=== PATIENT | female | born 1945 | race Caucasian/White ===

== ENCOUNTER 2020-01-06 14:51 | Outpatient (CLI) | payer OTHER, SELFPAY ==
--- NOTE | ~2020-01-06 | MM_ITS ---
EXAMINATION: MM screening dana BI w eliot HISTORY: Screening TECHNIQUE: Craniocaudal and mediolateral oblique 3-D tomosynthesis images were obtained and synthetic 2-D images were generated. CAD analysis was submitted and interpreted. COMPARISON: Comparison to multiple prior studies sequentially, with oldest reviewed study dated 04/09. BREAST PARENCHYMAL COMPOSITION: There are scattered areas of fibroglandular density. FINDINGS: There is no evidence of suspicious mass, calcification, or architectural distortion to sugg est malignancy in either breast. There has been no suspicious interval change. IMPRESSION: 1. No mammographic evidence of malignancy. 2. Recommend routine screening mammography in one year. BI-RADS Category 1: Negative Reviewed, dictated and finalized at location A.
== END 2020-01-06 14:52 | disposition home or self-care (01) ==
LOC: ANHIMG 14:55
PROVIDERS: PCP Internal Medicine; Visit Provider Internal Medicine
DX: Z12.31 Encounter for screening mammogram for malignant neoplasm of breast (principal)
CPT/HCPCS: 77063; 77067

== ENCOUNTER 2020-04-20 07:59 | Outpatient (CLI) | payer OTHER, SELFPAY ==
--- NOTE | 2020-04-20 08:48 | ECG_ITS ---
Measurements Intervals [place] Rate: 51 P: 30 AK: 177 QRS: -14 QRSD: 84 T: 33 QT: 439 QTc: 408 Interpretive Statements SINUS BRADYCARDIA INCOMPLETE RIGHT BUNDLE BRANCH BLOCK DELAYED PRECORDIAL R/S TRANSITION LOW QRS VOLTAGE IN PRECORDIAL LEADS BASELINE ARTIFACT- I, II, AVR, AVL BORDERLINE ECG Electronically Signed On 04-20-2020 9:09:26 TRIAL CONSULTANT by Kemal Smiley D.O.
[2020-04-20 09:11] LABS: Basophils Absolute Auto 0.1 K/mm3 (0.0-0.1); Basophils Percent Auto 0.9 % (0.2-1.2); Eosinophils Absolute Auto 0.2 K/mm3 (0-0.3); Eosinophils Percent Auto 2.4 % (0-4.4); Hematocrit 43.5 % (37.0-47.0); Hemoglobin 14.3 g/dL (12.0-15.0); Immature Granulocyte Absolute 0.01 K/mm3 (0.00-0.031); Immature Granulocyte Percent A 0.1 % (0-0.5); Lymphocytes Absolute Auto 1.72 K/mm3 (0.9-3.2); Lymphocytes Percent Auto 25.3 % (18.3-44.2); Mean Corpuscular HGB Conc 32.9 g/dl (32-36); Mean Corpuscular Hemoglobin 30.8 pg (26-34); Mean Corpuscular Volume 93.5 fl (80-100); Mean Platelet Volume 10.7 fl (7.4-10.4); Monocytes Absolute Auto 0.5 K/mm3 (0.1-0.6); Monocytes Percent Auto 7.1 % (2.6-8.5); Neutrophils Absolute Auto 4.4 K/mm3 (1.3-6.7); Neutrophils Percent Auto 64.2 % (45.5-73.1); Platelet Count Result 217 k/mm3 (150-375); Red Blood Count 4.65 M/mm3 (4.2-5.4); Red Cell Distribution Width 12.2 % (11.5-14.5); White Blood Count 6.8 K/mm3 (4.5-10.0)
[2020-04-20 09:20] LABS: Urine Cotinine NEGATIVE
[2020-04-20 09:23] LABS: Albumin Level 4.4 g/dL (3.5-5.1); Estimated Glomerular Filt Rate > 60; Glucose 90 mg/dL (65-105); Hemoglobin A1C 5.1 % (<5.7)
== END 2020-04-20 08:00 | disposition home or self-care (01) ==
LOC: ANHSURGERY 08:01
PROVIDERS: PCP Internal Medicine; Visit Provider Orthopaedic Surgery
DX: M17.12 Unilateral primary osteoarthritis, left knee (principal); I45.10 Unspecified right bundle-branch block; R00.1 Bradycardia, unspecified; Z51.81 Encounter for therapeutic drug level monitoring; Z79.899 Other long term (current) drug therapy
CPT/HCPCS: 80307; 82040; 82565; 82947; 83036; 85025; 86850; 86900; 86901; 87081; 93005

== ENCOUNTER → 2020-04-29 03:18 | Outpatient (CLI) | payer OTHER, SELFPAY ==
[2020-04-29 18:10] LABS: SARS-CoV-2 RNA PCR Negative
== END ==
PROVIDERS: PCP Internal Medicine; Visit Provider Orthopaedic Surgery
DX: Z01.812 Encounter for preprocedural laboratory examination (principal); Z20.822 Contact with and (suspected) exposure to COVID-19
CPT/HCPCS: C9803; U0003; U0005

== ENCOUNTER 2020-05-02 02:00 | Day surgery (SDC) | payer OTHER, SELFPAY ==
[2020-04-20 08:07] VITALS: BMI 25.1
[2020-04-20 08:55] VITALS: BP 158/76; PULSE 64; RESP 16; TEMP 37.1; O2SAT 100
--- NOTE | 2020-04-29 13:11 | WPDANESEPPF ---
Anes - Initial Pre Proc Eval Procedure: Operation Date: 05/02/20 07:30 Proposed Procedures p Left Total Knee Arthroplasty - John Arrington MD Date/Time: 04/29/20 13:11 Surgeon: John Arrington MD Pre Op Diagnosis: left knee OA Patient Data Age: 74 Gender: F Height: 5 ft 7.5 in Weight: 73.8 kg Last Vital Signs Temp 98.8 F 04/20/20 08:55 Pulse 64 04/20/20 08:55 Resp 16 04/20/20 08:55 BP 158/76 H 04/20/20 08:55 Pulse Ox 100 04/20/20 08:55 Allergies Allergy/AdvReac Type Severity Reaction Status Date / Time mirabegron [From Myrbetriq] Allergy Unknown Rash, Verified 04/20/20 08:08 BLURRY VISION,CONSTIPATION Inhaled Anesthetics (Halogen AdvReac Unknown Nausea and Verified 04/20/20 08:49 Based) Vomiting Home Medications Medication Instructions Recorded Confirmed Type Ca 600 mg-D3 800 unit-mag oxide 50 1 tablet PO DAILY 04/14/19 04/27/20 History nj-Yq-dewohb-manganese-boron tablet atorvastatin 10 mg tablet 10 mg PO HS 04/14/19 04/27/20 History biotin 10,000 mcg-keratin 100 mg 1 tablet PO DAILY 04/14/19 04/27/20 History tablet ibuprofen 100 mg tablet 200 mg PO PRN PRN 04/14/19 04/27/20 History ibuprofen 200 mg-diphenhydramine 1 cap PO PRN PRN 04/14/19 04/27/20 History HCl 25 mg capsule loratadine-pseudoephedrine ER 10 1 tablet PO DAILY 04/14/19 04/27/20 History mg-240 mg tablet,extended [id number] magnesium oxide 400 mg (241.3 mg 400 mg PO DAILY 04/14/19 04/27/20 History magnesium) tablet multivitamin 1 tablet PO DAILY 04/14/19 04/27/20 History pyridoxine (vitamin B6) 100 mg 100 mg PO DAILY 04/14/19 04/27/20 History tablet sennosides 8.6 mg-docusate sodium 1 tab-cap PO DAILY 04/14/19 04/27/20 History 50 mg tablet wheat dextrin 3 gram/3.5 gram oral 1.5 gm PO DAILY 04/14/19 04/27/20 History powder cyanocobalamin (vitamin B-12) 1,000 mcg PO DAILY 04/20/20 04/27/20 History oxybutynin chloride 10 mg PO DAILY 04/20/20 04/27/20 History rivaroxaban 10 mg tablet 10 mg PO DAILY #14 tablet 04/27/20 04/27/20 Rx Patient hx anesthesia problems: none Family hx anesthesia problems: none PMFSH Past Medical History Medical History Arthritis Constipation Flat foot [pes planus] (acquired), left foot High cholesterol History of blood clots History of pulmonary embolism Osteoporosis Posterior tibial tendon dysfunction (PTTD) of left lower extremity Urinary frequency Vision abnormalities Surgical History Surgical History History of foot surgery left foot bunion and bunionette as well as hammertoe done in [place] History of hip surgery Right hip 01-13-19 [place] History of shoulder surgery 2017-[facility] Hx of knee surgery Right Knee 2013-[facility] Family History Family History Mother Patient's mother is Other Arthritis Heart disease Malignant neoplasm Social History Social History Years smoked: 20 Smoking status: Former smoker Tobacco type: cigarettes Smoking end date: 03/25/89 Additional smoking assessment comments: DENIES ANY FORM OF TOBACCO USE Alcohol intake: current Alcohol use details: 2 DRINKS PER MONTH Living arrangements: alone Spiritual care concerns: No Anes - Eval Final PreProcedure Day of Procedure 04/29/20 13:11 Patient weight: overweight Heart: regular rate and rhythm Lungs: clear to auscultation Airway: Mallampati scale class II Neurological: alert and oriented Last oral intake: >/= 8 hours ASA classification: III Emergent: no Anesthetic plan: proceed Anesthesia type and monitoring: general LMA and standard monitoring Informed Consent: The patient's anesthetic plan and its attendant risks and benefits were discussed with the patient/family/POA. Questions were
[2020-05-02] VITALS (15 sets, daily range): BP systolic 101–156; BP diastolic 64–97; PULSE 64–86; RESP 12–21; TEMP 36–37.1; O2SAT 92–100
--- NOTE | ~2020-05-02 | XR_ITS ---
EXAMINATION: XR knee LT 2V DATE: 05/02/2020 10:16 INDICATION: Left knee arthroplasty. Postop. TECHNIQUE: 2 views of left knee were obtained. COMPARISON: Left knee radiographs 09/24/2019 FINDINGS: There is a total left knee arthroplasty with patellar resurfacing in near-anatomic alignmen t. No fracture. There is gas in the knee joint and soft tissues, consistent with recent surgery. IMPRESSION: 1. Total left knee arthroplasty in near-anatomic alignment. Reviewed, dictated and finalized at location A. [employer]
[2020-05-02] MEDS: LACTATED RINGERS 1,000 ML 30 ML IV CONT ×2 (06:44→10:03)
[2020-05-02] MEDS: ACETAMINOPHEN 500 MG TABLET 1000 MG PO ×3 (06:44→19:28)
[2020-05-02] MEDS: TRANEXAMIC ACID 1,000MG/ISO100 1,000 MG/100 ML BAG 200 MG IVPB (06:56)
--- NOTE | 2020-05-02 06:59 | WPDANESPNB ---
Anes - Peripheral Nerve Block Date/Time: 05/02/20 06:59 I have discussed with the patient/family/POA the placement of a peripheral nerve block for post-operative pain management, including associated risks, benefits, complications, and side effects. Alternative methods of post-operative analgesia were detailed. Questions were solicited and answers provided to the satisfaction of the patient/family/POA. Time-Out: A pre-procedural Time-Out was completed immediately before starting the procedure and confirmed: Patient Identification, Site, Procedure, Patient Position and the Availability of Requisite Equipment. Clinical Indications: Acute post-operative pain management requested by the operative surgeon. Nerve Block Insertion Note Anes-nerve block: adductor canal left Patient position: supine Skin prep: chlorhexidine Needle: 22 gauge, stimulating, insulated echogenic needle. Needle length: 80 mm Technique: ultrasound Technique comment: in plane Injectate: bupivacaine 0.5% with epi 5 mcg/ml (30cc) Observations: tolerated well Complications: none Procedure start time:: 720 Procedure end time:: 725
--- NOTE | 2020-05-02 07:13 | WPDHPUPDATE1 ---
History and Physical Update Update Date/Time: 05/02/20 07:13 History and Physical has been reviewed, including an updated exam of the patient. There are NO changes in the patient's condition. Risks, benefits, and alternatives have been discussed and questions answered. Patient agrees to proceed with procedure.
[2020-05-02] MEDS: ceFAZolin 2 GM/D5W 50 ML 2 GM/50 ML BAG IVPB (07:30)
[2020-05-02] MEDS: BUPIVACAINE/EPINEPHRINE 0.25% 50 ML VIAL 60 ML INFILTRATE (08:10)
[2020-05-02] MEDS: TRANEXAMIC ACID 1,000 MG/10 ML AMPUL 1000 MG TOPICAL (08:10)
--- NOTE | 2020-05-02 10:07 | PM.PROC ---
Procedure Note - Detailed Date of procedure: 05/02/20 Pre-op diagnosis: left knee OA Post-op diagnosis: same Procedure performed: left total knee replacement Description of procedure: The patient was identified and proper site identified. In the preop holding area the anesthesia team performed a left sub sartorial block after which the patient was taken to the operating room and transferred to the OR table positioning supine taking care to pad the torso and extremities. After induction of anesthesia and intubation a nonsterile tourniquet was placed high on the left thigh. The left lower extremity was prepped and draped in the usual sterile fashion. The extremity was exsanguinated and with the knee flexed tourniquet was inflated to 300 mmHg remaining up for approximately 65 minutes. An anterior midline incision was made and a mid vastus approach was used. Infra and suprapatellar fat pads were excised. Patella was resected leaving 15 mm thickness and prepared for the size 31 round three peg component. Using the intramedullary guide the distal femur was cut in the proper orientation for the size 65 femoral component. Using the extramedullary guide the tibia was cut perpendicular to the long axis protecting collateral ligaments and popliteal structures. It was sized to a 67. Flexion and extension gaps were balanced. Trial reduction was undertaken and the weight-bearing line was noted to passed through the center of the joint. Proximal tibia was drilled and punched in the proper orientation for the real component. Trial components were removed. The bone surfaces were washed with pulsatile lavage and dried. The real components were cemented simultaneously. The knee was held in extension and the patella held clamped until the cement had cured. Excess cement was removed from the joint. After trialing it was determined that the 12 mm insert gave full range of motion from 0-120 degrees of flexion and the patella tracked in the femoral groove with no lift-off. After final lavage the joint the real 12 insert was placed and secured with a locking bar. A Betadine and saline wash was placed into the wound and allowed to sit for approximately 3 minutes and then evacuated. Periarticular tissues were infiltrated with 60 cc of the arthroplasty solution. 1 g of tranexamic acid was left in the wound. The extensor mechanism was repaired with #2 Vicryl suture and 0 looped PDS suture. Subcu was reapproximated with three 0 Monocryl, 2-0 strata fix and tissue adhesive for the skin. A sterile dressing was applied. She tolerated the procedure well, was awakened and extubated, transferred to the bed and was taken to recovery area in stable condition. There were no known intraoperative complications. Perioperative antibiotics were administered. Anesthesia: GLMA Surgeon: John Arrington MD Gang Bore Operator: Kiera Pringle Estimated blood loss (mL): 100 Drains: No Packing: No Pathology: none sent Complications: No immediate complications Condition: stable Disposition: PACU
[2020-05-02] MEDS: fentaNYL CITRATE INJ (*CRX) 100 MCG/2 ML VIAL 25 MCG IV PUSH ×8 (10:13→10:39)
[2020-05-02] MEDS: HYDROmorphone HCL INJ (*CRX) 1 MG/ML SYR 0.5 MG IV PUSH ×2 (10:41→10:50)
--- NOTE | 2020-05-02 12:15 | ADMGEN ---
This patient, Kassandra Wilson, was admitted to 2 Medical Room 242-. Patient/family oriented to hospital policies and general routines including ID bracelet, bed and alarms, visiting hours, pain management, procedures, bathroom and other care routines, personal items, smoking policy, room service/diet, and visiting hours. Information on how to activate the Rapid Response Team has been discussed. Patient/Family are encouraged to report perceived risks to care and to ask questions if they do not understand what they are told or what they should do.
[2020-05-02] MEDS: oxyCODONE HCL (*CRX) 5 MG TAB IR PO ×2 (14:23→19:29)
[2020-05-02] MEDS: ONDANSETRON INJ 4 MG/2 ML VIAL IV PUSH (17:21)
[2020-05-02] MEDS: DOCUSATE SODIUM 100 MG CAPSULE PO (17:21)
[2020-05-02] MEDS: ATORVASTATIN 10 MG TABLET PO (20:04)
[2020-05-02] MEDS: FAMOTIDINE 20 MG TABLET PO (20:04)
[2020-05-03 02:00] VITALS: BP 129/67; PULSE 58; RESP 21; TEMP 36.3; O2SAT 100
[2020-05-03] MEDS: ACETAMINOPHEN 500 MG TABLET 1000 MG PO ×2 (02:20→09:08)
[2020-05-03] MEDS: oxyCODONE HCL (*CRX) 5 MG TAB IR PO ×2 (02:20→09:09)
[2020-05-03 06:00] VITALS: BP 135/83; PULSE 64; RESP 20; TEMP 36.2; O2SAT 99
--- NOTE | 2020-05-03 06:21 | PC.NURSE ---
Pt states she has been up to the chair shortly after surgery. Pt alert and oriented.
--- NOTE | 2020-05-03 07:22 | PM.DS ---
DS: Admitting Diagnosis Admitting Diagnosis Admitting Diagnosis: Osteoarthritis left knee DS: Discharge Diagnosis Discharge Diagnosis (1) Osteoarthritis of left knee: Qualifiers: Osteoarthritis type: primary Qualified Code(s): M17.12 - Unilateral primary osteoarthritis, left knee Code(s): M17.12 - Unilateral primary osteoarthritis, left knee Status: Acute Assessment and Plan: Patient is going to be discharged home today. Her outpatient therapy begins in one week. She was provided with home going instructions. She already has a follow-up with me in two weeks. DS: Summary Hospital Course Reason for hospitalization: Outpatient observation following total knee replacement Hospital Course: Following the patient's surgery, she was admitted to the floor for outpatient observation. She made excellent progress overnight is going to be discharged home. Her therapy was initiated in the hospital. Status at Discharge Functional status at discharge: uses cane/walker Time Spent with Patient Time attestation: Total time spent providing and/or coordinating discharge services: Exam Const: General: cooperative, comfortable and no acute distress Nutritional Appearance: well nourished Orientation/consciousness: patient oriented x3 HENMT: Head: normal to inspection Ears: hearing grossly normal bilaterally Face and sinus: face symmetric Mouth: Yes moist mucous membranes Teeth and gingiva: fair dentition Eyes: Alignment and Position: alignment normal and position normal Sclera: sclerae normal Neck: Neck: normal visual inspection and nontender Chest: Chest palpation & inspection: normal inspection of the chest Resp: Effort & Inspection: normal respiratory effort and able to speak in complete sentences GI: Inspection: other (Nondistended, nontender) Skin: General skin exam: normal color Rashes: no rashes Neuro: General: patient oriented x3 Cognition (Neuro): normal cognition Speech: normal speech Extrem: General: normal to inspection and other Other: Exam of the left knee shows a dry dressing and minimal swelling. Grossly, neurovascular status unremarkable to the left lower extremity. Calves negative. Full active extension noted. Able to flex at least 90? on own already. Psych: Appearance: grossly normal Mental Status: mental status grossly normal Discharge Plan Discharge Patient Disposition: Home, Self-Care Discharge Instructions: 3 times daily for 20 minutes each time, reclining in bed with ice packs over the incision and a pillow underneath the calf of the affected leg, not under the knee. Your wound is glued so it is okay to get into the shower and get the wound wet in two days. Be sure to read through all the information that came from a my office and the hospital. Most of the answers you will need can be found that material. Call the office with any questions that you cannot find answers to, or concerns you may have. After the Xarelto is completed, start taking one coated 325 mg aspirin daily and do this for four more weeks. Please call [facility] at as soon as possible to confirm follow-up appointment to be seen in 2 weeks. Also, call the office with any orthopedic/surgical related questions prior to follow-up. Be sure to get up and move around several times daily but do not overdo it. Take the arthritis formula Tylenol 650 mg tablet on an 8 hour schedule. A good 8 hour schedule is: 6:00 a.m., 2:00 p.m., 10:00 p.m. you may take the prescribed pain medication along with the Tylenol; it is not to be taken instead of the Tylenol. I would like for you to take the Tylenol on a schedule for 2-3 weeks. Once the Xarelto is completed, if you wish to supplement your pain regimen with [id number] anti-inflammatory such as Advil or Aleve, that is fine. Follow the label instructions. Do not take this medicine if you have an allergy to NSAIDs. Patient Instructions: An
[2020-05-03] MEDS: FAMOTIDINE 20 MG TABLET PO (09:09)
[2020-05-03] MEDS: RIVAROXABAN 10 MG TABLET PO (09:09)
[2020-05-03] MEDS: MULTIVITAMINS THERAPEUTIC TAB (*BKC) 1 TABLET PO (09:09)
[2020-05-03] MEDS: CYANOCOBALAMIN 1,000 MCG TABLET 1000 MCG PO (09:09)
[2020-05-03] MEDS: DOCUSATE SODIUM 100 MG CAPSULE PO (09:10)
[2020-05-03] MEDS: PYRIDOXINE HCL 50 MG TABLET 100 MG PO (09:10)
--- NOTE | 2020-05-03 09:34 | WPDANESPN ---
Anes - Prog Note Post-Op Date/Time: 05/03/20 09:34 Cardiovascular status: normal Respiratory status: normal Airway patency: baseline Mental status: baseline Post-Op hydration status: normal Vital Signs: Last Vital Signs Temp 36.2 C L 05/03/20 06:00 Pulse 64 05/03/20 06:00 Resp 20 05/03/20 06:00 BP 135/83 05/03/20 06:00 Pulse Ox 99 05/03/20 06:00 Pain Score (VAS): 0 I/O: Intake & Output 05/02/20 05/03/20 05/03/20 23:59 07:59 15:59 Intake Total 300 750 480 Output Total 875 1000 Balance -575 -250 480 Post-procedural complaints: none Patient Feedback: Patient satisfied with anesthetic care.
[2020-05-03 10:00] VITALS: BP 114/54; PULSE 71; RESP 16; TEMP 36.6; O2SAT 100
--- NOTE | 2020-05-03 11:35 | PC.NURSE ---
pt discharged home, sent with dressing supplies and cryo cuff ice machine, reviewed all discharge instructions with pt and medications were transmitted to pharmacy, pt doing well and eager to get home
== END 2020-05-03 11:34 | disposition home or self-care (01) ==
LOC: ANHSURGERY 10:07 → ANH2MED 11:37
PROVIDERS: PCP Internal Medicine; Visit Provider Orthopaedic Surgery
PROC: (CPT 27447; principal; 2020-05-02 07:30)
DX: M17.12 Unilateral primary osteoarthritis, left knee (principal); G89.18 Other acute postprocedural pain; E78.00 Pure hypercholesterolemia, unspecified; M81.0 Age-related osteoporosis without current pathological fracture; Z86.711 Personal history of pulmonary embolism; Z79.01 Long term (current) use of anticoagulants; Z87.891 Personal history of nicotine dependence
CPT/HCPCS: 27447; 64447; 73560; 97110; 97116; 97161; 97165; 97530; A9270; C1713; C1776; C9803; J0690; J1100; J1170; J2405; J2704; J3010; J7120; U0003; U0005

== ENCOUNTER 2020-06-03 09:55 | Emergency (ER) | payer OTHER, SELFPAY ==
[2020-06-03 10:20] VITALS: BP 159/67; PULSE 79; RESP 18; TEMP 36.1; O2SAT 100
--- NOTE | 2020-06-03 11:14 | PC.NURSE ---
Report to Perri RN, to continue care. JOVI Marks, at bedside for digital block.
--- NOTE | 2020-06-03 11:27 | ED.GENADULT ---
HPI - General Adult General Chief complaint: Extremity Problem,Nontraumatic <Ranjith Anguiano PA-C - Last Filed: 06/03/20 11:31> Stated complaint: fingernail infection <SOWMYA Hilton Last Filed: 06/03/20 11:31> Time Seen by Provider: 06/03/20 10:05 <Ranjith Anguiano PA-C - Last Filed: 06/03/20 11:31> Source: patient <Ranjith Anguiano PA-C - Last Filed: 06/03/20 11:31> Mode of arrival: ambulatory <SOWMYA Hilton Last Filed: 06/03/20 11:31> Limitations: no limitations <SOWMYA Hilton Last Filed: 06/03/20 11:31> History of Present Illness HPI narrative: Patient is a 74-year-old female who presents with infection to the nailbed of the right middle finger has been managed by her orthopedist Dr. Arrington is currently on Bactrim in the last day it is developed some purulence at the proximal nail fold patient notes moderate aching pain worse with touch and activity. Patient denies any fever chills nausea vomiting. Patient presents in no distress <Ranjith Anguiano PA-C - Last Filed: 06/03/20 11:31> Related Data Home medications: Home Medications Medication Instructions Recorded Confirmed Ca 600 mg-D3 20 mcg-mag oxide 50 1 tablet PO DAILY 04/14/19 05/31/20 pr-Zk-ybysdc-manganese-boron tablet atorvastatin 10 mg tablet 10 mg PO HS 04/14/19 05/31/20 biotin 10,000 mcg-keratin 100 mg 1 tablet PO DAILY 04/14/19 05/31/20 tablet ibuprofen 100 mg tablet 200 mg PO PRN PRN 04/14/19 05/31/20 ibuprofen 200 mg-diphenhydramine 1 cap PO PRN PRN 04/14/19 05/31/20 HCl 25 mg capsule loratadine-pseudoephedrine ER 10 1 tablet PO DAILY 04/14/19 05/31/20 mg-240 mg tablet,extended [id number] magnesium oxide 400 mg (241.3 mg 400 mg PO DAILY 04/14/19 05/31/20 magnesium) tablet multivitamin 1 tablet PO DAILY 04/14/19 05/31/20 pyridoxine (vitamin B6) 100 mg 100 mg PO DAILY 04/14/19 05/31/20 tablet sennosides 8.6 mg-docusate sodium 1 tab-cap PO DAILY 04/14/19 05/31/20 50 mg tablet wheat dextrin 3 gram/3.5 gram oral 1.5 gm PO DAILY 04/14/19 05/31/20 powder cyanocobalamin (vitamin B-12) 1,000 mcg PO DAILY 04/20/20 05/31/20 oxybutynin chloride 10 mg PO DAILY 04/20/20 05/31/20 <Ranjith Anguiano PA-C - Last Filed: 06/03/20 11:31> Allergies/adverse reactions: Allergies Allergy/AdvReac Type Severity Reaction Status Date / Time mirabegron [From Myrbetriq] Allergy Unknown Rash, Verified 05/02/20 07:16 BLURRY VISION,CONSTIPATION Inhaled Anesthetics (Halogen AdvReac Unknown Nausea and Verified 05/02/20 07:16 Based) Vomiting <Ranjith Anguiano PA-C - Last Filed: 06/03/20 11:31> Review of Systems Review of Systems: All systems reviewed & are unremarkable except as noted in HPI and below <Ranjith Anguiano PA-C - Last Filed: 06/03/20 11:31> [facility] Past Medical History Medical History: Medical History Arthritis Constipation Flat foot [pes planus] (acquired), left foot High cholesterol History of blood clots History of pulmonary embolism Osteoporosis Paronychia Right long finger May 2020 Posterior tibial tendon dysfunction (PTTD) of left lower extremity Urinary frequency Vision abnormalities <Ranjith Anguiano PA-C - Last Filed: 06/03/20 11:31> Surgical History Surgical History: Surgical History History of foot surgery left foot bunion and bunionette as well as hammertoe done in [place] History of hip surgery Right hip 01-13-19 [place] History of shoulder surgery 2017-[facility] Hx of knee surgery Right Knee 2013-[facility] Left TKA April 2019 Osteoarthritis of left knee Left TKA March 2020 <Ranjith Anguiano PA-C - Last Filed: 06/03/20 11:31> Family History Family History: Family History Mother Patient's mother is decea
== END 2020-06-03 12:17 | disposition home or self-care (01) ==
PROVIDERS: Emergency Provider General Practice; PCP Internal Medicine
DX: L03.011 Cellulitis of right finger (principal); E78.00 Pure hypercholesterolemia, unspecified; M19.90 Unspecified osteoarthritis, unspecified site; M81.0 Age-related osteoporosis without current pathological fracture; Z86.711 Personal history of pulmonary embolism; Z87.891 Personal history of nicotine dependence
CPT/HCPCS: 26010; 87070; 87075; 87147; 87186; 87205; 99283

== ENCOUNTER 2020-06-20 10:00 | Outpatient (RCR) | payer OTHER, SELFPAY ==
--- NOTE | 2020-05-16 11:07 | PTOPEVAL ---
Thank you for referring Kassandra Wilson to [facility].? The patient is scheduled to be seen for therapy? 2 x/week for 5 weeks. Please review, sign, date and return this plan of care PRERNA. I agree with and certify that the following plan of care is medically necessary. Referring Physician Date Attending Provider: John Arrington MD Physical Therapy Evaluation Evaluation Information Problem Diagnosis left TKA Onset 05/02/20 Cause OA Subjective Information Pt had her TKR 05/02/20. She had Query Text:As Reported By Patient/ to cancel her visit last week Family due to the weather. She is currently using a ww to improve mobility. No AD prior to surgery. [facility] She is limited with her ability to perform transfers in/out car, mobility at home and community, getting out of chair, performing ADL's/IADL's. She needs to be back to normal to allow her to perform normal hiking, walking and traveling. Prior Level of Function Activity Level (Last 3 Months) Activity of Daily Living Ability Independent Indoor/Home Mobility Independent Community Mobility Independent Stairs Ability Independent Functional Cognition (Planning, Shopping Independent , Taking Medications) Cooking Yes Cleaning Yes Laundry Yes Shopping Yes Driving Yes Home Setting Home Type House Environmental Barriers Stairs, 2-4 Living Situation Alone Mobility Assistive Devices (Used Last 3 None Months) Pain Assessment Left Knee(s) Reported Pain Level 2 Pain Description Aching,Sharp,Tender on Palpation Pain Frequency Continuous Lowest Pain Intensity 2 Greatest Pain Intensity 10 Pain Aggravating Factors ADL's,Bending,Exercise/ Activity,Sitting,Stair Climbing,Walking,Weight Bearing/Standing Lower Extremity Range of Motion Left Knee Flexion Range of Motion - Active 85 Knee Extension Range of Motion - Passive -7 Knee Range of Motion Limitations Edema,Pain Knee Range of Motion Comments right: 0-123 dg Lower E
--- NOTE | 2020-06-20 16:07 | PTOPEVAL ---
Thank you for referring Kassandra Wilson to [facility].? Kassandra has been seen for 11 therapy visits to address impairments related to her knee surgery. She demonstrates improved knee range, leg strength, performance with daily task and functional mobility. She has achieved 90% of her therapy goals at this time. She is indep with her home program. Will D/C skilled therapy services at this time. Please review, sign, date and return this discharge summary PRERNA. I agree with and certify that the following plan of care is medically necessary. Referring Physician Date Attending Provider: John Arrington MD Physical Therapy Discharge Note Diagnosis left TKA Onset 05/02/20 Cause OA Additional Evaluation Detail Pt had her TKR 05/02/20. Subjective Information She is not using a cane or Query Text:As Reported By Patient/ walker. She is performing Family community mobility, driving and shopping task. She reports shooting pain in lateral knee at night, but no consistent. She denies problems with steps. She continues to have slight trouble getting in/out of car. Pain Assessment Pain Scale Used Numeric (1 - 10) Self Report Pain Assessment Left Knee(s) Reported Pain Level 0 Pain Description Shooting Pain Frequency Intermittent Lowest Pain Intensity 0 Greatest Pain Intensity 5 Lower Extremity Range of Motion Left Knee Flexion Range of Motion - Active 110 Knee Flexion Range of Motion - Passive 120 Knee Extension Range of Motion - Active 0 Query Text: Knee Range of Motion Limitations Edema,Pain Knee Range of Motion Comments right knee flex: 0- 115 dg Lower Extremity Muscle Strength Testing Hip Strength Right Hip Flexion Strength 5 Normal Hip Extension Strength 3+ Fair + Hip Abduction Strength 3+ Fair + Left Hip Flexion Strength 4- Good - Hip Extension Strength 3+ Fair + Hip Abduction Strength 3+ Fair + Knee Strength Right Knee Flexion Strength 4+ Good + Knee Extension Strength 5 Normal Left Knee Flexion Strength 4+ Good + Knee Extension Strength 4+ Good + Extremity Circumference Assessment Location Left Body Part Knee Site Descriptor ([place]) mid-patellar region Circumference (cm) 40 Noninvolved Side Circumference (cm) 38 Circumference Comments tibial tuberosity: left 36 cm, right: 34 Balance Assessment Time Up Go (TUG) Timed Up and Go Test (TUG) (Seconds) 10 Assistive Devices None 5 Time Sit
== END 2020-06-21 10:33 | disposition home or self-care (01) ==
LOC: ANHPT 10:00
PROVIDERS: PCP Internal Medicine; Visit Provider Orthopaedic Surgery
DX: Z47.1 Aftercare following joint replacement surgery (principal); Z96.652 Presence of left artificial knee joint
CPT/HCPCS: 97014; 97110; 97116; 97140; 97162; 97530; G0283

== ENCOUNTER 2021-05-04 16:07 | Outpatient (CLI) | payer OTHER, SELFPAY ==
--- NOTE | ~2021-05-04 | MM_ITS ---
EXAMINATION: MM screening [facility] BI w eliot HISTORY: Screening mammogram TECHNIQUE: Craniocaudal and mediolateral oblique 3-D tomosynthesis images were obtained and synthetic 2-D images were generated. CAD analysis was submitted and interpreted. COMPARISON: 01/06/2020, 11/26/2018, 11/20/2017 BREAST PARENCHYMAL COMPOSITION: There are scattered areas of fibroglandular density. FINDINGS: There is no evidence of suspicious mass, calcification, or architectural distortion to sugg est malignancy in either breast. There has been no suspicious interval change. IMPRESSION: 1. No mammographic evidence of malignancy. 2. Recommend routine screening mammography in one year. BI-RADS Category 1: Negative Reviewed, dictated and finalized at location A. RD LIBRARIAN
== END 2021-05-04 16:08 | disposition home or self-care (01) ==
LOC: ANHIMG 16:10
PROVIDERS: PCP Internal Medicine; Visit Provider Internal Medicine
DX: Z12.31 Encounter for screening mammogram for malignant neoplasm of breast (principal)
CPT/HCPCS: 77063; 77067

== ENCOUNTER 2022-08-09 15:09 | Outpatient (CLI) | payer OTHER, SELFPAY ==
--- NOTE | ~2022-08-09 | MM_ITS ---
EXAMINATION: MM screening [facility] BI w eliot HISTORY: Screening mammogram TECHNIQUE: Craniocaudal and mediolateral oblique 3-D tomosynthesis images were obtained and synthetic 2-D images were generated. CAD analysis was submitted and interpreted. COMPARISON: 05/04/2021, 01/06/2020, 11/26/2018 BREAST PARENCHYMAL COMPOSITION: There are scattered areas of fibroglandular density. FINDINGS: No suspicious mass, calcification, or architectural distortion are identified in either baljit ast to suggest malignancy. There has been no suspicious interval change. IMPRESSION: 1. No mammographic evidence of malignancy. 2. Recommend routine screening mammography in one year. BI-RADS Category 1: Negative Reviewed, dictated and finalized at location A.
== END 2022-08-09 15:10 | disposition home or self-care (01) ==
PROVIDERS: PCP Internal Medicine; Visit Provider Internal Medicine
DX: Z12.31 Encounter for screening mammogram for malignant neoplasm of breast (principal)
CPT/HCPCS: 77063; 77067

== ENCOUNTER 2023-07-27 10:23 | Outpatient (CLI) | payer OTHER, SELFPAY ==
--- NOTE | ~2023-07-27 | MM_ITS ---
EXAMINATION: MM screening [facility] BI w eliot HISTORY: Screening mammogram TECHNIQUE: Craniocaudal and mediolateral oblique 3-D tomosynthesis images were obtained and synthetic 2-D images were generated. Bilateral rotated lateral CC views. CAD analysis was submitted and interp reted. COMPARISON: 08/09/2021, 05/04/2021 bilateral screening mammogram examinations BREAST PARENCHYMAL COMPOSITION: There are scattered areas of fibroglandular density. FINDINGS: There is no evidence of suspicious mass, calcification, or architectural distortion to sugg est malignancy in either breast. There has been no suspicious interval change. IMPRESSION: 1. No mammographic evidence of malignancy. 2. Recommend routine screening mammography in one year. BI-RADS Category 1: Negative Reviewed, dictated and finalized at location A.
== END 2023-07-27 10:24 | disposition home or self-care (01) ==
LOC: ANHIMG 10:25
PROVIDERS: PCP Internal Medicine; Visit Provider Internal Medicine
DX: Z12.31 Encounter for screening mammogram for malignant neoplasm of breast (principal)
CPT/HCPCS: 77063; 77067

== ENCOUNTER 2023-08-15 12:40 | Outpatient (CLI) | payer OTHER, SELFPAY ==
--- NOTE | 2023-08-15 | ECHO_ITS ---
Patient Info Name: Kassandra Wilson Age: 77 years : 1945 Gender: Female Ht: 67 in Wt: 172 lbs BSA: 1.94 m2 BP: 145 / 69 mmHg Technical Quality: Fair Exam Date: 08/15/2023 1:02 PM Exam Location: Echo Lab Patient Status: Outpatient Admit Date: 08/15/2023 Staff Ordering Physician: LeathaLouis MD [employer] Wildlife Biologist: Galdino Sow RDCS Attending Provider: LeathaLouis MD Exam Type: CA echo doppler color flow Study Info Indications R01.1 - Cardiac murmur, unspecified Complete two-dimensional, color flow and Doppler transthoracic echocardiogram is performed. Summary 1. Complete two-dimensional, color flow and Doppler transthoracic echocardiogram is performed. 2. Left ventricular chamber dimension is normal. 3. Left ventricular systolic function is normal, estimated at 65-70%. 4. There is mild concentric increased left ventricular wall thickness. 5. The left ventricular diastolic function is grade I diastolic dysfunction. 6. E/e' 15 is elevated. 7. Left atrial chamber dimension is mildly enlarged. 8. There is severe aortic valve sclerosis. 9. There is severe aortic valve stenosis with a peak velocity of 297 cm/s, mean gradient of 17 mmHg, and aortic valve area of 0.8 cm2. 10. There is mild mitral valve regurgitation. 11. There is mild tricuspid valve regurgitation. 12. No pulmonary hypertension, estimated pulmonary arterial systolic pressure is 29 mmHg. 13. There is mild pulmonic regurgitation. 14. There is trivial pericardial effusion. Left Ventricle E/e' 15 is elevated. Left ventricular chamber dimension is normal. Left ventricular systolic function is normal, estimated at 65-70%. There is mild concentric increased left ventricular wall thickness. The left ventricular diastolic function is grade I diastolic dysfunction. Right Ventricle Right ventricular systolic function is normal and with normal TAPSE 1.9 cm. Right ventricular chamber dimension is normal. Left Atria Left atrial chamber dimension is mildly enlarged. Right Atria Right atrial chamber dimension is normal. Aortic Valve The aortic valve is trileaflet. There is severe aortic valve sclerosis. There is severe aortic valve stenosis with a peak velocity of 297 cm/s, mean gradient of 17 mmHg, and aortic valve area of 0.8 cm2. There is no aortic valve regurgitation. Pulmonic Valve There is mild pulmonic regurgitation. Mitral Valve There is no mitral valve stenosis. There is mild mitral valve regurgitation. Tricuspid Valve There is mild tricuspid valve regurgitation. No pulmonary hypertension, estimated pulmonary arterial systolic pressure is 29 mmHg. Pericardium/Pleural There is trivial pericardial effusion. Inferior Vena Cava Normal inferior vena cava with >50% collapse upon inspiration consistent with normal right atrial pressure, 5 mmHg. Aorta The aortic root size at the sinus of Valsalva is normal. Left Ventricular Outflow Tract Name Value Normal LVOT 2D LVOT Diameter 2.0 cm LVOT Doppler LVOT Peak Gradient 2 mmHg LVOT Mean Gradient 1 mmHg LVOT VTI 19 cm LVOT VTI/AV VTI Ratio 0.3 LVOT Strok
== END 2023-08-15 12:41 | disposition home or self-care (01) ==
PROVIDERS: PCP Internal Medicine; Visit Provider Internal Medicine
DX: I34.0 Nonrheumatic mitral (valve) insufficiency (principal); I35.1 Nonrheumatic aortic (valve) insufficiency; I36.1 Nonrheumatic tricuspid (valve) insufficiency
CPT/HCPCS: 93306

== ENCOUNTER 2023-09-05 08:51 | Day surgery (SDC) | payer OTHER, SELFPAY ==
[2023-08-01 09:49] VITALS: BMI 26.9
[2023-08-29 14:55] VITALS: BMI 26.9
[2023-09-05 09:24] VITALS: BMI 26.9
[2023-09-05 09:25] VITALS: BP 151/83; PULSE 77; RESP 14; TEMP 36.8; O2SAT 97
[2023-09-05] MEDS: LACTATED RINGERS 1,000 ML 150 ML IV CONT (09:36)
--- NOTE | 2023-09-05 09:44 | WPDANESEPPF ---
Anes - Initial Pre Proc Eval Procedure: Operation Date: 09/05/23 10:30 Proposed Procedures p Screening Colonoscopy - Massimo Chacon MD Date/Time: 09/05/23 09:44 Surgeon: Massimo Chacon MD Pre Op Diagnosis: Screening neoplasm of colon Patient Data Age: 78 Gender: F Height: 1.7 m Weight: 77.8 kg Last Vital Signs Temp 36.8 C 09/05/23 09:25 Pulse 77 09/05/23 09:25 Resp 14 09/05/23 09:25 BP 151/83 H 09/05/23 09:25 Pulse Ox 97 09/05/23 09:25 O2 Del Method Room Air 09/05/23 09:25 Allergies Allergy/AdvReac Type Severity Reaction Status Date / Time mirabegron [From Myrbetriq] Allergy Unknown Rash, Verified 09/05/23 09:20 BLURRY VISION,CONSTIPATION Inhaled Anesthetics (Halogen AdvReac Unknown Nausea and Verified 09/05/23 09:20 Based) Vomiting Home Medications Medication Instructions Recorded Confirmed Type Ca 600 mg-D3 20 mcg-mag oxide 50 1 tablet PO DAILY 04/14/19 09/05/23 History nl-Sb-ucrxui-manganese-boron tablet (Calcium 600-D3 Plus (mag-zinc)) atorvastatin 10 mg tablet 10 mg PO HS 04/14/19 09/05/23 History biotin 10,000 mcg-keratin 100 mg 1 tablet PO DAILY 04/14/19 09/05/23 History tablet (Biotin Plus Keratin) ibuprofen 100 mg tablet (Advil) 200 mg PO PRN PRN Pain 04/14/19 09/05/23 History ibuprofen 200 mg-diphenhydramine 1 cap PO PRN PRN Pain 04/14/19 09/05/23 History HCl 25 mg capsule (Advil PM Liqui-Gels) loratadine-pseudoephedrine ER 10 1 tablet PO DAILY 04/14/19 09/05/23 History mg-240 mg tablet,extended [id number] (Claritin-D 24 Hour) magnesium oxide 400 mg (241.3 mg 400 mg PO DAILY 04/14/19 09/05/23 History magnesium) tablet multivitamin 1 tablet PO DAILY 04/14/19 09/05/23 History pyridoxine (vitamin B6) 100 mg 100 mg PO DAILY 04/14/19 09/05/23 History tablet cyanocobalamin (vitamin B-12) 1,000 mcg PO DAILY 04/20/20 09/05/23 History 1,000 mcg tablet oxybutynin chloride 10 mg 10 mg PO DAILY 04/20/20 09/05/23 History tablet,extended release 24 hr Patient hx anesthesia problems: none Family hx anesthesia problems: none Results Review: All pre-operative results and documents have been reviewed as part of the pre-operative evaluation. [facility] Past Medical History Medical History Arthritis Constipation Contracture of palmar fascia (Dupuytren's) right hand Flat foot [pes planus] (acquired), left foot High cholesterol History of blood clots History of pulmonary embolism Osteoporosis Paronychia Right long finger May 2020 Posterior tibial tendon dysfunction (PTTD) of left lower extremity Urinary frequency Vision abnormalities Surgical History Surgical History History of bilateral knee replacement left 2020 right 2013 - [facility] History of foot surgery left foot bunion and bunionette as well as hammertoe done in [place] History of hip surgery Right hip 01-13-19 [facility] History of shoulder surgery 2017-[facility] Hx of knee surgery Right Knee 2013-[facility] Left TKA April 2019 Osteoarthritis of left knee Left TKA March 2020 Family History Family History Mother Patient's mother is Other Arthritis Heart disease Malignant neoplasm Social History Social History Years smoked: 20 Smoking status: Former smoker Tobacco type: cigarettes Smoking end date: 03/25/89 Additional smoking assessment comments: DENIES ANY FORM OF TOBACCO USE Alcohol intake: never Alcohol use details: 2 DRINKS PER MONTH Substance use: never Substance use type: does not use Living arrangements: alone Occupation/Education: retired Gender identity (if verbalized by the patient): Female Spiritual care concerns: No Anes - Eval Final PreProcedure Day of P
--- NOTE | 2023-09-05 09:57 | PM.HPGS ---
History of Present Illness History of Present Illness Consent: Risks, benefits, and alternatives have been discussed and questions answered. Patient agrees to proceed with procedure. Chief complaint: Screening neoplasm of colon Narrative: Kassandra Wilson is a 78 year old female presents for screening colonoscopy. Patient's current weight appetite and bowel movements are normal. Patient denies abdominal pain. She has had no bleeding. Family history noncontributory. Patient reports previous colonoscopy 11 years ago, results not available for review. Review of Systems Review of Systems: All systems reviewed & are unremarkable except as noted in HPI and below PMFSH Past Medical History Medical History Arthritis Constipation Contracture of palmar fascia (Dupuytren's) right hand Flat foot [pes planus] (acquired), left foot High cholesterol History of blood clots History of pulmonary embolism Osteoporosis Paronychia Right long finger May 2020 Posterior tibial tendon dysfunction (PTTD) of left lower extremity Urinary frequency Vision abnormalities Surgical History Surgical History History of bilateral knee replacement left 2020 right 2013 - [facility] History of foot surgery left foot bunion and bunionette as well as hammertoe done in [place] History of hip surgery Right hip 01-13-19 [facility] History of shoulder surgery 2017-[facility] Hx of knee surgery Right Knee 2013-[facility] Left TKA April 2019 Osteoarthritis of left knee Left TKA March 2020 Family History Family History Mother Patient's mother is Other Arthritis Heart disease Malignant neoplasm Social History Social History Years smoked: 20 Smoking status: Former smoker Tobacco type: cigarettes Smoking end date: 03/25/89 Additional smoking assessment comments: DENIES ANY FORM OF TOBACCO USE Alcohol intake: never Alcohol use details: 2 DRINKS PER MONTH Substance use: never Substance use type: does not use Living arrangements: alone Occupation/Education: retired Gender identity (if verbalized by the patient): Female Spiritual care concerns: No Meds Home Medications and Allergies Home Medications Medication Instructions Recorded Confirmed Type Ca 600 mg-D3 20 mcg-mag oxide 50 1 tablet PO DAILY 04/14/19 09/05/23 History xc-Bb-ynllqs-manganese-boron tablet (Calcium 600-D3 Plus (mag-zinc)) atorvastatin 10 mg tablet 10 mg PO HS 04/14/19 09/05/23 History biotin 10,000 mcg-keratin 100 mg 1 tablet PO DAILY 04/14/19 09/05/23 History tablet (Biotin Plus Keratin) ibuprofen 100 mg tablet (Advil) 200 mg PO PRN PRN Pain 04/14/19 09/05/23 History ibuprofen 200 mg-diphenhydramine 1 cap PO PRN PRN Pain 04/14/19 09/05/23 History HCl 25 mg capsule (Advil PM Liqui-Gels) loratadine-pseudoephedrine ER 10 1 tablet PO DAILY 04/14/19 09/05/23 History mg-240 mg tablet,extended [id number] (Claritin-D 24 Hour) magnesium oxide 400 mg (241.3 mg 400 mg PO DAILY 04/14/19 09/05/23 History magnesium) tablet multivitamin 1 tablet PO DAILY 04/14/19 09/05/23 History pyridoxine (vitamin B6) 100 mg 100 mg PO DAILY 04/14/19 09/05/23 History tablet cyanocobalamin (vitamin B-12) 1,000 mcg PO DAILY 04/20/20 09/05/23 History 1,000 mcg tablet oxybutynin chloride 10 mg 10 mg PO DAILY 04/20/20 09/05/23 History tablet,extended release 24 hr Allergies Allergy/AdvReac Type Severity Reaction Status Date / Time mirabegron [From Myrbetriq] Allergy Unknown Rash, Verified 09/05/23 09:20 BLURRY VISION,CONSTIPATION Inhaled Anesthetics (Halogen AdvReac Unknown Nausea and Verified 09/05/23 09:20 Based) Vomiting Vital Signs Vital Signs - 24 hr 09/05/23 09:2
[2023-09-05 10:50] VITALS: BP 145/80; PULSE 82; RESP 12; O2SAT 98
[2023-09-05 11:00] VITALS: BP 144/76; PULSE 77; RESP 14; O2SAT 98
--- NOTE | 2023-09-05 11:09 | WPDANESPN ---
Anes - Prog Note Post-Op Date/Time: 09/05/23 11:09 Cardiovascular status: normal Respiratory status: normal Airway patency: baseline Mental status: baseline Post-Op hydration status: normal Vital Signs: Last Vital Signs Temp 36.8 C 09/05/23 09:25 Pulse 77 09/05/23 11:00 Resp 14 09/05/23 11:00 BP 144/76 H 09/05/23 11:00 Pulse Ox 98 09/05/23 11:00 O2 Del Method Room Air 09/05/23 11:00 Pain Score (VAS): 0/10 I/O: Intake & Output 09/04/23 09/05/23 09/05/23 23:59 07:59 15:59 Intake Total 600 Balance 600 Patient Feedback: Patient satisfied with anesthetic care.
[2023-09-05 11:10] VITALS: BP 146/78; PULSE 75; RESP 14; O2SAT 100
--- NOTE | 2023-09-05 11:21 | SUR.PHASEII ---
Contacted Nadeem Su at [phone] to inform procedure finished and pt will be ready to be picked up at 1115. Stated they would let the tractor sweeper driver know, but that it can take 15-60 minutes for pt to be picked up. Dorethaabel Su given main number for tractor sweeper driver to call once here so pt can be taken out.
== END 2023-09-05 11:54 | disposition home or self-care (01) ==
PROVIDERS: PCP Internal Medicine; Visit Provider Internal Medicine Gastroenterology
PROC: 0DJD8ZZ Inspection of Lower Intestinal Tract, Via Natural or Artificial Opening Endoscopic (ICD-10-PCS; CPT 45378; principal; 2023-09-05 10:30)
DX: Z12.11 Encounter for screening for malignant neoplasm of colon (principal); K57.30 Diverticulosis of large intestine without perforation or abscess without bleeding; K64.8 Other hemorrhoids
CPT/HCPCS: 45378

== ENCOUNTER 2024-11-19 09:15 | Outpatient (CLI) | payer OTHER, SELFPAY ==
--- NOTE | ~2024-11-19 | MM_ITS ---
EXAMINATION: MM screening [facility] BI w eliot HISTORY: Screening TECHNIQUE: Craniocaudal and mediolateral oblique 3-D tomosynthesis images were obtained and synthetic 2-D images were generated. CAD analysis was submitted and interpreted. COMPARISON: Comparison to multiple prior studies sequentially, with oldest reviewed study dated , 11/26/2018 BREAST PARENCHYMAL COMPOSITION: There are scattered areas of fibroglandular density. FINDINGS: There is no evidence of suspicious mass, calcification, or architectural distortion to suggest malignancy in either breast. IMPRESSION: 1. No mammographic evidence of malignancy. 2. Recommend routine screening mammography in one year. BI-RADS Category 1: Negative Reviewed, dictated and finalized at location B.
--- OUTSIDE RECORDS SUMMARY | 2024-11-19 09:32 | XMS_ITS | Patient Health Record ---
Author Organization [facility] Address [address] [place], [place] [id number] Care Team Providers Care Route Sales Specialist Name Role Phone TITI Alexander Unavailable Lonnie Alvarado Unavailable Unavailable Reason For Referral No Information Plan Of Treatment No Information Insurance Providers Payer Name Payer Address Payer Phone Subscriber Number Group Number Insured Name Patient Relationship to Insured Coverage Start Date Coverage End Date [facility] [address] [place] [phone] [id number] [place] Self - patient is the insured
== END 2024-11-19 09:16 | disposition home or self-care (01) ==
LOC: ANHFOHIMG 09:17
PROVIDERS: PCP Internal Medicine; Visit Provider Internal Medicine
DX: Z12.31 Encounter for screening mammogram for malignant neoplasm of breast (principal)
CPT/HCPCS: 77063; 77067